=== PATIENT | female | born 1975 | race Caucasian/White ===

== ENCOUNTER 2017-07-05 11:27 | Emergency (ER) | payer SELFPAY ==
[2017-07-05 11:41] VITALS: RESP 16; TEMP 98.8
--- NOTE | 2017-07-05 12:04 | EDPHY ---
H & P Stated Complaint: general aches and weakness, dizziness, and ribs hurt and stomach hurts Time Seen by Provider: 07/05/17 11:32 HPI/ROS: CHIEF COMPLAINT: Arm swelling, dizziness, abdominal discomfort HISTORY OF PRESENT ILLNESS: This is a 41-year-old female who presents with multiple complaints. Patient states that for years she has had abdominal difficulties, describing periumbilical abdominal pain after eating associated with bloating and diarrhea. Last week she noted that her right arm was swollen with no clear cause. Arm was not painful but felt swollen and a sensation of pressure radiated into her neck both right and left. No shortness of breath. No color changes noted to the arm. No trauma. Four days ago she developed worsening abdominal discomfort. She reports whenever she eats something she feels bloated and has diarrhea. No fever. No vomiting. She does have some nausea. She also relates a history of dizziness described as spinning. No palpitations , or shortness of breath. No syncope. Intermittently she has sharp, brief, pins and needle sensation in the right upper chest. She also notes pins and needle and tingling sensation in her toes. She also reports pins and needle sensation in her thighs and reports her legs feel weak. Reports no fevers or chills. No trauma. No headache. No back pain. REVIEW OF SYSTEMS: Aside from elements discussed in the HPI, a comprehensive 10-point review of systems was reviewed and is negative. PAST MEDICAL HISTORY: Denies past medical history although the patient does not have primary care physician and has not been seen for number of years. SOCIAL HISTORY: Nonsmoker. Occasional alcohol. Denies illicit drug use. VITAL SIGNS Reviewed by me. GENERAL: Well-developed, well-nourished, resting comfortably in no respiratory distress. HEENT: Atraumatic. Eyes: No icterus, no injection. No icterus. Mouth: moist mucous membranes. No erythema or lesions. Neck: supple with no adenopathy. LUNGS: Clear to auscultation bilaterally, no wheezes, rhonchi or rales. CHEST: No tenderness to palpation. No trauma. CARDIAC: Regular rate and rhythm, no rubs, murmurs or gallops. ABDOMEN: Soft, no tenderness to palpation. Patient indicates the area of discomfort is periumbilically. No guarding. No rebound. No distension. BACK: Mild left CVA tenderness to percussion. Patient denies pain without palpation. EXTREMITIES: Right upper extremity: Mild swelling of the biceps is appreciable. Arm and forearm compartments are soft. No tenderness of the arm or forearm. Full range of motion at the shoulder and elbow. No erythema or cyanosis. Skin is warm and dry. Radial and ulnar pulses are 2+ and equal distally. No trauma. No edema. Range of motion is normal throughout. NEURO: Alert and oriented, cranial nerves 2-12 are intact. Motor strength is normal in upper and lower extremities. Sensation is intact throughout. grossly nonfocal. SKIN: Warm and dry, no rash. PSYCHIATRIC: Normal mentation, no agitation. - Personal History LMP (Females 10-55): 22-28 Days Ago Current Tetanus/Diphtheria Vaccine: No Current Tetanus Diphtheria and Acellular Pertussis (TDAP): No - Medical/Surgical History Hx Asthma: No Hx Chronic Respiratory Disease: No Hx Diabetes: No Hx Cardiac Disease: No Hx Renal Disease: No Hx Cirrhosis: No Hx Alcoholism: No Hx HIV/AIDS: No Hx Splenectomy or Spleen Trauma: No Other PMH: denies - Social History Smoking Status: Current some day smoker Constitutional: Initial Vital Signs Temperature (C) 37.1 C 07/05/17 11:34 Heart Rate 75 07/05/17 11:34 Respiratory Rate 16 07/05/17 11:34 Blood Pressure 124/79 H 07/05/17 11:34 O2 Sat (%) 97 07/05/17 11:34 O2 Delivery Mode Room Air Allergies/Adverse Reactions: No Known Allergies Allergy (Unverified 07/05/17 11:41) Home Medications: Medication Instructions Recorded Dicyclomine [Bentyl 20 MG (*)] 20 mg PO QID #30 tab 07/05/17 Medical Decision Making - Diagnostics EKG Interpretation: 12-LEAD EKG: Please see the full report in [facility]. My interpretation: Normal sinus rhythm Imaging Results: Upper extremity DVT: Impression: No evidence of vein thrombosis in the right arm. Results called and discussed with Naa Dickey MD, at 07/05/2017 12:53 Dictated By: Lavelle Valdes MD CXR: Impression: 1. No acute findings in the chest. 2. Degenerative change with mild anterior height reduction of several midthoracic vertebral bodies, possibly congenital or posttraumatic. Dictated By: Ap Barton MD Imaging: Discussed imaging studies w/ long term care administrator Radiologist, I viewed and interpreted images myself ED Course/Re-evaluation: 41-year-old female presenting to the emergency department with constellation of symptoms including abdominal pain which has been chronic, but worse over the last 4 days, swelling in her right upper extremity which has improved, dizziness , and tingling. Her abdomen is very benign on examination. Patient had IV placed and received normal saline. Ultrasound of the right upper extremity demonstrates no DVT. Patient's laboratory evaluation demonstrates normal CBC, chemistries demonstrate a slightly elevated AST and ALT, with ALT more elevated. Hepatitis panel was sent. Of note the patient's CPK is also 1609. Renal function is normal. I discussed these results with the patient. She does report using cocaine 2 weeks ago. She can identify no other factor which may have led to swelling of her right upper extremity. She denies trauma to the right upper extremity, significant overuse syndrome to the right upper extremity, prolonged immobilization of the right upper extremity. Patient received a L of normal saline and a repeat CPK was checked. Repeat CPK is 1403 following 750 cc of normal saline. Patient will be discharged home. I again discussed with her the importance of being well-hydrated, avoiding stimulants in the future, as well as informed her that hepatitis panel have been ordered given her elevated AST and ALT, although lose these may be secondary to mild rhabdomyolysis. Patient will follow up as directed. Differential Diagnosis: After obtaining the patient's history and performing an examination, differential diagnosis considered included but was not limited to gastritis, pancreatitis, gastroenteritis, bloating, rhabdomyolysis, upper extremity DVT, renal failure, electrolyte abnormalities. - Data Points Laboratory Results: Laboratory Results 07/05/17 12:00 07/05/17 12:00 Medications Given: Discontinued Medications Sodium Chloride (Ns) 1,000 mls @ 0 mls/hr IV ONCE ONE; Wide Open PRN Reason: Protocol Stop: 07/05/17 13:09 Last Admin: 07/05/17 13:12 Dose: 1,000 mls Departure - Departure Disposition: Home, Routine, Self-Care Clinical Impression: Swelling of right upper extremity, Elevated CPK Abdominal pain Qualifiers: Abdominal location: generalized Qualified Code(s): R10.84 - Generalized abdominal pain Condition: Good Instructions: Dicyclomine (By mouth), Rhabdomyolysis (ED), Gas and Bloating (ED ), Chronic Abdominal Pain (ED) Additional Instructions: 1. For your arm swelling, please take Tylenol. Be sure that the arm swelling is improving over the next couple of days. 2. For your abdominal pain, you been given a prescription of Bentyl. This may help with cramping, spasms, diarrhea and excess gas. 3. If you feel like you are developing heartburn or indigestion, you may begin taking an [id number] prescription of omeprazole. This is also known as Prilosec. 4. The results of the hepatitis screen will be available in 24-48 hours. You may call the emergency department at [phone] to obtain those results. 5. I also advised that you should follow up with a primary care physician. You been given referral to Dr. Alejandra Anne, and had been [facility] 6. Please stay well hydrated over the next several days, drinking plenty of fluid. Referrals: Alejandra Feldman MD [Medical Doctor] - As per Instructions [facility] - As per Instructions Prescriptions: Dicyclomine [Bentyl 20 MG (*)] 20 mg PO QID #30 tab
[2017-07-05 12:11] LABS: PLATELET COUNT 255 10^3/uL (150-400)
--- NOTE | 2017-07-05 12:12 | CPEKG ---
Heart Rate: 58 RR Interval: 1034 P-R Interval: 136 QRSD Interval: 78 QT Interval: 396 QTC Interval: 389 P [place]: 44 QRS [place]: 42 T Wave [place]: 33 EKG Severity - NORMAL ECG - EKG Impression: SINUS RHYTHM Electronically Signed By: Naa Dickey 05-Jul-2017 14:57:41
[2017-07-05 12:32] LABS: CREATINE KINASE 1609 IU/L (0-156)
[2017-07-05] MEDS ORDERED: NS 1,000 ML IV ONE (13:08)
[2017-07-05 14:57] LABS: CREATINE KINASE 1403 IU/L (0-156)
[2017-07-05 15:24] VITALS: BP 108/65; PULSE 57; O2SAT 96
[2017-07-05 22:35] LABS: HEPATITIS B SURFACE ANTIGEN NEGATIVE (NEGATIVE)
[2017-07-05 22:41] LABS: HEPATITIS A ANTIBODY IGM (BCH) NEGATIVE (NEGATIVE); HEPATITIS B CORE AB IGM NEGATIVE (NEGATIVE)
[2017-07-05 22:53] LABS: HEPATITIS C ANTIBODY TOTAL NEGATIVE (NEGATIVE)
== END 2017-07-05 15:20 | disposition home or self-care (01) ==
LOC: CED 11:27
DX: M79.89 Other specified soft tissue disorders (principal); R10.84 Generalized abdominal pain; R74.8 Abnormal levels of other serum enzymes; F17.200 Nicotine dependence, unspecified, uncomplicated; E86.9 Volume depletion, unspecified
CPT/HCPCS: 71046-PO; 80048-PO; 80076-PO; 80307-PO; 81003-PO; 81015-PO; 82550-PO; 82553-PO; 83690-PO; 83735-PO; 84484-PO; 85025-PO; 93971-PO; G0472